=== PATIENT | male | born 1955 | race Caucasian/White ===

== ENCOUNTER → 2018-12-28 | Outpatient (CLI) | payer OTHER ==
[~2018-12-28] MED LIST: CEPH500 PO; Lisinopril2.5 MG PO; Norco 5-325 Ta1 EACH PO
== END | disposition home or self-care (01) ==
LOC: PLD 08:04 → LAB SHORT 08:04
DX: D22.4 Melanocytic nevi of scalp and neck (principal); C44.311 Basal cell carcinoma of skin of nose
CPT/HCPCS: 88305